=== PATIENT | female | born 1990 | race Caucasian/White ===

== ENCOUNTER 2019-03-19 08:56 | Emergency (ER) | payer MEDICAID, SELFPAY ==
[2019-03-19 08:59] VITALS: BP 119/61; PULSE 72; RESP 18; TEMP 36.6; O2SAT 98
--- NOTE | 2019-03-19 09:01 | W.ED.GENAD ---
Discharge Plan Disposition Patient Disposition: HOME Condition: Improving Discharge Details Chief Complaint: Nausea/Vomit/Diar Clinical Impression: Gastroenteritis Primary Care Provider: Grace Thomas ED Provider: Tegan Durán Home Meds and New Rx's Prescriptions: New promethazine 25 mg tablet 25 mg PO QID PRN (Reason: nausea and vomiting) Qty: 10 RF: 0 No Action Control Pills RF: 0 Discharge Instructions Instructions: Gastroenteritis (ED) Additional Instructions: Encourage hydration. You may use Tylenol and ibuprofen as needed for discomfort. Advance diet as tolerated, for now trying to stick with bland easy to digest foods such as bananas, rice, applesauce, toast. You may use the Phenergan as prescribed to help with any recurrence of your nausea or vomiting. Please follow-up with primary care next week for reevaluation. You will need to bring in stool sample if the diarrhea persists for further evaluation. You did have blood in your urine today, this may need to be repeated by her primary care once her menses has completed. Referrals: Grace Thomas [Primary Care Provider] - Discharge Data Discharge Date/Time-TO BE ENTERED AT DEPARTURE: 03/19/19 10:48 Medical Decision Making Patient is a 28-year-old female presents today with chief complaint of nausea, vomiting and diarrhea. She reports the diarrhea began approximately 3 weeks ago. Denies any melena or cheesy. No recent antibiotics. No recent travel. He reports this came on after attending a wedding and she was drinking alcohol. Is not had any alcohol since then. States that the stool is primarily liquidy. Reports that during the course of the day she is averaging approximately 5 bowel movements daily. Has had to this for today. Endorses some abdominal cramping prior to the episodes of diarrhea. Began having nausea and vomiting over the past few days. Vomited this morning after receiving her methadone dosing. States that she has not been able to keep down any liquids in the last 2 days. Denies any chest pain, shortness of breath. Has been feeling chilled but no document fevers. She denies any vaginal discharge. Denies any dysuria. Endorses urinary urgency. On exam she appears fatigued and uncomfortable. She does not appear toxic. Her vital signs are within normal limits. Lungs are clear, normal cardiac exam. Abdomen is benign with no peritoneal findings. Normal bowel sounds. Plan to hydrate the patient, obtain labs, particularly evaluate for any electrolyte abnormalities. Patient is requesting antiemetic, she is on methadone, will use Phenergan. She wants to be able to leave here in time to be re-dosed at the clinic. UPT negative Patient received IV Phenergan and 1 L fluid is feeling much improved. She is now hydrating in the department. Reviewed her labs, no significant abnormalities. Urine was significant for blood the patient is currently menstruation. I did advise that she may want to ensure this is cleared once her menstrual cycle has stopped with her primary care. She will be prescribed oral Phenergan. She is requesting discharge home she may be redosed with her methadone. We discussed diet advancement. She was not able to give a stool sample here, she was given an order for outpatient stool collection. Stool collection kit was given to her by nursing staff. She was given strict return precautions. All her questions and concerns were addressed and she is in agreement this plan. HPI General Mode of arrival: ambulatory. Date/Time Provider Initiated Documentation: 03/19/19 09:01. Limitations to Documentation: no limitations. Information obtained by: patient and RN notes reviewed. History of Present Illness 28 year old F presents to the emergency department with the chief complaint of N/V/D, described as moderate, Quality is described as aching (has abdominal cramping prior to diarrhea, no pain currently), and is localized to the abdomen. Patient reports no radiation. Patient started experiencing this week(s) (3) and it has been constant. No relieving factors improve symptom(s), Eating worsens symptoms (increases nausea) . Patient notes loss of appetite and nausea/vomiting; denies chest pain, cough, diaphoresis, fever/chills, headaches, rash, seizure, shortness of breath and weakness. Patient did receive the following treatments prior to arrival, none Related Data Home Medications Medication Instructions Recorded Confirmed Control Pills 03/19/19 promethazine 25 mg PO QID PRN #10 tab 03/19/19 Previous Rx's Medication Instructions Recorded promethazine 25 mg PO QID PRN #10 tab 03/19/19 Allergies Allergy/AdvReac Type Severity Reaction Status Date / Time banana Allergy Anaphylaxsi Unverified 03/19/19 09:03 s Review of Systems Constitutional Constitutional: Reports as per HPI, Denies chills, Denies fatigue, Denies fever(s) and Denies headache(s) ENT Ears, Nose, Mouth, and Throat: Denies headache(s) Cardiovascular Cardiovascular: Reports as per HPI, Denies chest pain and Denies dyspnea Respiratory Respiratory: Reports as per HPI, Denies cough and Denies dyspnea Gastrointestinal Gastrointestinal: Reports as per HPI, Reports abdominal pain (cramping), Denies melena, Denies hematochezia, Denies fecal incontinence, Reports diarrhea, Reports nausea, Reports vomiting and Denies hematemesis Genitourinary Genitourinary: Reports as per HPI, Denies hematuria, Denies urinary frequency, Denies dysuria, Denies pelvic pain, Denies flank pain, Reports urinary urgency and Denies vaginal discharge Musculoskeletal Musculoskeletal: Reports as per HPI and Denies back pain Integumentary/Breasts Skin/Breast: Reports as per HPI and Denies rash Neurologic Neurologic: Reports as per HPI and Denies headache(s) Endocrine Endocrine: Denies fatigue [facility] Social History Smoking/Tobacco Use Status: Former Tobacco Use Quit Date: 07/16/08 Drug use: Current Sobriety Details: hx herion abuse. currently on methadone. Do you feel safe at home: Yes Do you feel safe in your relationship?: Yes Exam Const General: cooperative, healthy appearing, comfortable, no acute distress and well developed Nutritional Appearance: average body habitus and well nourished Orientation: alert and awake HENMT Head: normal to inspection Mouth: moist mucous membranes Resp Effort & Inspection: normal respiratory effort, able to speak in complete sentences and no respiratory distress Auscultation: clear to auscultation bilaterally, no rales, no rhonchi and no wheezes Cardio Rate: regular rate Rhythm: regular rhythm Heart Sounds: S1 normal and S2 normal GI Inspection: normal to inspection, no edema and non-distended Palpation: soft, no hepatosplenomegaly, no aortic enlargement, not firm, no guarding and not rigid Percussion: normal to percussion Auscultation: normal bowel sounds Back/Spine/Pelvis Back: no CVA tenderness Skin General skin exam: no rashes or lesions noted Trauma: no lacerations or abrasions Neuro General: alert and awake Cognition: normal cognition Speech: speech normal Gait: normal gait Psych Appearance: grossly normal and well kempt Mental Status: mental status grossly normal Speech and Movement: speech and movement normal
[2019-03-19] MEDS: Lactated Ringers 1,000 ML 1000 ML IV (09:29)
[2019-03-19 09:32] LABS: Absolute Basophil Count 0.01 k/cumm (0.0-0.2); Absolute Eosinophil Count 0.09 k/cumm (0.0-0.7); Absolute Lymphocyte Count 0.67 k/cumm (1.2-3.4); Absolute Monocyte Count 0.22 k/cumm (0.11-0.7); Absolute Neutrophil Count 5.39 k/cumm (1.2-6.7); Basophils % 0.2; Eosinophils % 1.4; HCT 37.6 % (36.0-46.0); Lymphocytes % 10.5; Mean Corp. HGB Concentration 34.6 g/dL (32.0-36.0); Mean Corpuscular Hemoglobin 30.7 pg (27.0-33.0); Mean Corpuscular Volume 88.7 fL (80-95); Mean Platelet Volume 9.8 fL (8.0-11.0); Monocytes % 3.4; Neutrophils % 84.5; Platelet Count 204 x1000/uL (130-400); RBC 4.24 m/cumm (4.00-5.20); RBC Distribution Width 12.2 % (11.7-14.6); White Blood Cell Count 6.38 k/cumm (4.4-10.8)
[2019-03-19 09:39] LABS: Bilirubin Small (Negative); Blood Large (Negative); Clarity Sl Cloudy (Clear); Glucose Negative (Negative); Ketones >=160 mg/dL (Negative); Leukocyte Esterase Negative (Negative); Nitrite Negative (Negative); Specific Gravity >= 1.030 (1.005-1.025); Urobilinogen 0.2 EU/dL (Up TO 0.2); pH 6.5 (5-8)
[2019-03-19 09:44] LABS: ALT 21 U/L (14-59); AST 21 U/L (15-37); Albumin 4.4 g/dL (3.4-5.0); Alkaline Phosphatase 81 U/L (46-116); Anion Gap 11.4 mmol/L (3-11); BUN 10 mg/dL (7-18); Bilirubin, Total 0.8 mg/dL (0.2-1.0); CO2 27.6 mmol/L (21.0-32.0); CREATININE 0.76 mg/dL (0.55-1.02); Calcium 9.1 mg/dL (8.5-10.1); Chloride 101 mmol/L (98-107); Glucose 123 mg/dL (70-100); Potassium 3.8 mmol/L (3.5-5.1); Sodium 140 mmol/L (136-145)
[2019-03-19] MEDS: Normal Saline Flush 10 ML SYR IVP (09:44)
[2019-03-19 09:49] LABS: Bacteria Moderate HPF (Negative); C & S Indicated? No; Casts Negative LPF (Negative); Crystals Negative HPF (Negative); Epithelial Cells Moderate HPF (Negative); Mucus Heavy (Negative); Other Cells Rare Renal (Negative); WBC 0-2 HPF (0-5)
[2019-03-19 11:05] VITALS: BP 119/61; PULSE 72; RESP 18; TEMP 36.6; O2SAT 98
== END 2019-03-19 10:48 | disposition home or self-care (01) ==
PROVIDERS: Emergency Provider Physician Assistant; PCP Nurse Practitioner Adult Health
DX: K52.9 Noninfective gastroenteritis and colitis, unspecified (principal)
CPT/HCPCS: 36415; 80053; 96361; 96365; 99284; 81003; 81015; 85025